=== PATIENT | female | born 1980 | race Caucasian/White ===

== ENCOUNTER 2016-04-06 06:43 | Emergency (ER) | payer OTHER | END 2016-04-06 08:10 | disposition home or self-care (01) | LOC: ER 06:43 | DX: N30.01 Acute cystitis with hematuria (principal); R10.2 Pelvic and perineal pain; F32.9 Major depressive disorder, single episode, unspecified; Z79.899 Other long term (current) drug therapy | CPT/HCPCS: 36415; 80053; 81001; 83690; 84703; 85025; 87088 ==